=== PATIENT | female | born 1985 | race Caucasian/White ===

== ENCOUNTER 2017-11-04 17:42 | Emergency (ER) | payer OTHER, SELFPAY ==
[2017-11-04 17:58] VITALS: PULSE 89; RESP 18; TEMP 36.6; O2SAT 98; BMI 25.1
--- NOTE | 2017-11-04 18:08 | XR_ITS ---
XR foot RT min 3V HISTORY: Pain and swelling following injury ITS.REASON: DROPPED OBJECT ON FOOT ORDERING PHYSICIAN: Rosaura Etienne MD PATIENT AGE: 31 years COMPARISON: None FINDINGS: There is a faint longitudinal lucency at the base of the proximal phalanx of the fourth toe suggesting a nondisplaced fracture extending into the articular surface at the metatarsophalangeal junction. Please correlate as to patient's area of pain and tenderness. Otherwise negative. IMPRESSION: Possible nondisplaced fracture base of the proximal phalanx of the fourth toe
--- NOTE | 2017-11-04 21:31 | PC.NURSE ---
pt left wobs 2100
== END 2017-11-04 21:00 | disposition left against medical advice (07) ==
PROVIDERS: Emergency Provider Emergency Medicine; Family Provider Family Medicine; PCP Family Medicine
DX: Z53.29 Procedure and treatment not carried out because of patient's decision for other reasons (principal); M25.571 Pain in right ankle and joints of right foot
CPT/HCPCS: 73630; 99282

== ENCOUNTER 2020-11-18 11:46 | Emergency (ER) | payer MEDICAID, SELFPAY ==
[2020-11-18 12:00] VITALS: BP 174/108; PULSE 108; RESP 20; TEMP 36.9; O2SAT 98; BMI 22.8
--- NOTE | 2020-11-18 12:25 | HMH.EDUTC ---
[facility] [place] Impression: Exposure to COVID-19 virus, Strep throat Disposition: Home, Self-Care Condition on Discharge: Good Instructions: DI for COVID-19 (Suspected or Confirmed ), Coronavirus Disease 2019, Preventing the Spread of Coronavirus Discharge Instructions, DI for Strep Throat Additional Instructions: *Monitor Temp, Over the counter Motrin or Tylenol as directed/as needed Tylenol every 4 hours and Motrin every 6 hours (as long as your family doctor has told you that you can take it) for fever or pain. and straight to ER if unable to lower temp less than 101.0 after medication given *Warm salt water gargles may help to soothe the throat *Throat Lozenges *Warm fluids like tea with honey may help to soothe the throat *Sleep elevated *Humidifier/Vaporizer *Flonase 2 sprays in each nostril daily but be aware that it may take 2-3 days before you notice improvement *Bromfed may cause drowsiness. Know how it effects you (your child) before driving, caring for small child, or sending your child to school. Not other antihistamines/allergy medications while taking bromfed Your throat swab was sent for culture. Those results are typically sent to your primary care. Be sure to follow up in 2-3 days with your family doctor/primary care physician if no improvement so they can review those result and treat if necessary. If you don?t have a primary care doctor, I recommend you get one but in the mean time, you will have to return to a walk in clinic Follow up IMMEDIATELY for new or worsening symptoms or no Noticeable improvement over the next 48-72 hours. 911 for difficulty breathing or swallowing You were tested for today for COVID19 your test result should be back in the next 24-48 hours, you may call to the [facility] to see if your test results are back in the next 48 hours [phone] [facility] hours are 9am-9pm You was given a handout with instructions for Self Quarantine and Self isolation for while you wait on test results and what to do if they are positive If you are positive the Health Dept will be contacting you also Your blood pressure was elevated in [facility] make sure to make appointment and follow up with your Family Doctor for further evaluation and treatment Prescriptions: Benzonatate [Tessalon Perle 100mg Cap*] 100 mg PO TID PRN #30 cap PRN Reason: Cough [id number] Azithromycin [Z-Bryan 250mg Tab] 250 mg PO DIRECTED #6 tab [facility] Referrals: Netta Islas [Primary Care Provider] - As needed Forms: Work/School Release Time of Disposition: 12:31 Medical Decision Making - Estevan Inquiry Pt receiving controlled substance: No Estevan was queried for this patient: No Vital Signs: 11/18/20 12:00 Temperature 98.5 F Temperature Source Oral Pulse Rate [Right Brachial] 108 H Respiratory Rate 20 Blood Pressure [Right Arm] 174/108 H Blood Pressure Mean [Right Arm] 130 Blood Pressure Source [Right Arm] Automatic Cuff Blood Pressure Position [Right Arm] Sitting 02 Sat by Pulse Oximetry 98 Oxygen Delivery Method Room Air - Lab Data Lab results reviewed: Yes: I reviewed the patient's lab results. Orders (Tests/Meds): ORDERS Category Date Time Status Covid-19 Nasal PCR Sendout P&C Routine Lab 11/18/20 11:54 [place] [facility] [place] - General Stated complaint: covid exposure Time Seen by Provider: 11/18/20 12:25 Mode of Arrival: Ambulatory Source of Information: Patient Limitations: No Limitations Description of Symptoms (Recalled from Triage Doc. by RN): PATIENT C/O CHILLS, SORE THROAT, COUGH, BODY ACHES, AND FATIGUE X 2 DAYS. EXPOSED TO COVID THROUGH WORK HEENT Symptoms (Recalled from RN notes): Yes Resp Symptoms (Recalled from RN notes): No Skin Symptoms (Recalled from RN notes): No MS Symptoms (Recalled from RN notes): Yes Functional Status (Recalled from RN notes): WNL - History of Present Illness Provid
[2020-11-18 12:28] VITALS: BP 174/108; PULSE 108; RESP 20; TEMP 36.9; O2SAT 98
[2020-11-18 12:46] LABS: UTC Strep Screen (Rapid) Positive (Negative)
[2020-11-18 12:47] LABS: UTC Influenza A Antigen Negative (Negative); UTC Influenza B Antigen Negative (Negative)
[2020-11-19 09:56] LABS: Covid-19 Nasal PCR Sendout P&C NEGATIVE
== END 2020-11-18 12:30 | disposition home or self-care (01) ==
PROVIDERS: Emergency Provider Nurse Practitioner; PCP Family Medicine
DX: Z20.822 Contact with and (suspected) exposure to COVID-19 (principal); J02.0 Streptococcal pharyngitis; F17.210 Nicotine dependence, cigarettes, uncomplicated
CPT/HCPCS: 87804; 87880; 99202; G0463; U0004

== ENCOUNTER 2021-01-22 12:53 | Emergency (ER) | payer MEDICAID, SELFPAY ==
[2021-01-22 13:11] VITALS: BP 167/109; PULSE 75; RESP 14; TEMP 37.1; O2SAT 97; BMI 20.7
[2021-01-22 13:21] LABS: UTC Strep Screen (Rapid) Positive (Negative)
[2021-01-22 13:31] VITALS: BP 140/89; PULSE 69; RESP 16; TEMP 36.6
--- NOTE | 2021-01-22 13:35 | HMH.EDUTC ---
[facility] [place] Disposition Clinical Impression: Strep throat Disposition: Home, Self-Care Condition on Discharge: Good Instructions: DI for Strep Throat, Strep Throat Additional Instructions: *Monitor Temp, Over the counter Motrin or Tylenol as directed/as needed Tylenol every 4 hours and Motrin every 6 hours (as long as your family doctor has told you that you can take it) for fever or pain. and straight to ER if unable to lower temp less than 101.0 after medication given *Warm salt water gargles may help to soothe the throat *Throat Lozenges *Warm fluids like tea with honey may help to soothe the throat *Sleep elevated *Humidifier/Vaporizer If you did not take Penicillin shot or was unable to, start taking antibiotic immediately and make sure that you take it for the FULL length of time although you should start to feel better in 24-48 hours *change toothbrush and toothpaste 24-48 hours after starting to take antibiotics so you do not reinfect yourself Monitor Temp. Tylenol and/or Ibuprofen as needed. ER if fever is no less than 101 despite alternating Tylenol and Ibuprofen * Encourage fluids, water, Gatorade, powerade, pedialyte if /toddler/or child *Cold fluids, popsicles and ice cream may feel good on his throat Follow up IMMEDIATELY for new or worsening symptoms or no Noticeable improvement over the next 48-72 hours. 911 for difficulty breathing or swallowing Prescriptions: Amoxicillin [Amoxicillin 500mg Cap] 500 mg PO BID 10 Days #20 cap Transmission Status: Pending to [id number] Referrals: PCP,No [Primary Care Provider] - As needed Forms: Work/School Release Time of Disposition: 13:39 Medical Decision Making - Estevan Inquiry Pt receiving controlled substance: No Estevan was queried for this patient: No Vital Signs: 01/22/21 13:11 01/22/21 13:31 Temperature 98.8 F 98 F Temperature Source Oral Pulse Rate 69 Pulse Rate [Right] 75 Respiratory Rate 14 16 Blood Pressure 140/89 Blood Pressure [Right Arm] 167/109 H Blood Pressure Mean [Right Arm] 128 Blood Pressure Source [Right Arm] Automatic Cuff Blood Pressure Position [Right Arm] Sitting 02 Sat by Pulse Oximetry 97 Oxygen Delivery Method Room Air - Lab Data Lab results reviewed: Yes: I reviewed the patient's lab results. Lab Results 01/22/21 13:19: Strep Scn Rapid Clinic Positive A [facility] [place] HPI - General Stated complaint: sore throat Time Seen by Provider: 01/22/21 13:35 Mode of Arrival: Ambulatory Source of Information: Patient Limitations: No Limitations Description of Symptoms (Recalled from Triage Doc. by RN): sore throat. pt was exposed to strep yesterday. HEENT Symptoms (Recalled from RN notes): Yes (sore throat) Resp Symptoms (Recalled from RN notes): No Skin Symptoms (Recalled from RN notes): No MS Symptoms (Recalled from RN notes): No Functional Status (Recalled from RN notes): na - History of Present Illness Provider Complaint: Patient state that she was around someone yesterday that was positive for strep and her and her daughter has been having symptoms States that her throat was hurting and pain when she would swallow so she came in to get checked - Related Data Home Medications Medication Instructions Recorded Confirmed lisinopriL [Lisinopril 10mg Tab] 10 mg PO DAILY 03/20/19 08/15/19 Previous Rx's Medication Instructions Recorded Cyclobenzaprine HCl [Flexeril 10mg 10 mg PO Q8HP PRN #15 tab 08/15/19 tablet] Etodolac [Etodolac 200mg Cap*] 200 mg PO Q6H PRN #20 cap 08/15/19 Acyclovir [Acyclovir 800mg tab] 800 mg PO 5XDAY 7 Days #35 tab 12/11/19 Azithromycin [Z-Bryan 250mg Tab*] 250 mg PO UD DOSE PK #6 tab 12/11/19 predniSONE [Deltasone 10mg tablet] 10 mg PO DAILY 9 Days #21 tab 12/11/19 predniSONE [Deltasone 10mg tablet] 10 mg PO DAILY 9 Days #39 tab 12/11/19 Hydrocod/Acet 5/325 mg [[place] 1 tab PO Q6HP PRN #10 tab 01/25/20 5/325mg tablet] predniSONE [Prednisone 20mg 20 m
== END 2021-01-22 13:47 | disposition home or self-care (01) ==
PROVIDERS: Emergency Provider Nurse Practitioner
DX: J02.0 Streptococcal pharyngitis (principal); I10 Essential (primary) hypertension
CPT/HCPCS: 87880; 99202; G0463

== ENCOUNTER 2021-04-22 21:14 | Emergency (ER) | payer MEDICAID, SELFPAY ==
[2021-04-22 21:16] VITALS: BP 170/113; PULSE 89; RESP 18; TEMP 36.9; O2SAT 98; BMI 19.8
--- NOTE | 2021-04-22 21:40 | XR_ITS ---
PROCEDURE INFORMATION: Exam: XR Right Elbow Exam date and time: 04/22/2021 9:40 PM Age: 35 years old Clinical indication: Injury or trauma; Fall; Blunt trauma (contusions or hematomas); Patient HX: Patient fell injuring right elbow. TECHNIQUE: Imaging protocol: XR Right elbow. Views: 3 or more views. COMPARISON: No relevant prior studies available. FINDINGS: Bones/joints: Normal. Soft tissues: Normal. IMPRESSION: No acute findings.
--- NOTE | 2021-04-22 22:36 | HMH.EDUPEXT ---
ED Disposition Clinical Impression: Sprain of elbow, right Qualifiers: Encounter type: initial encounter Qualified Code(s): S53.401A - Unspecified sprain of right elbow, initial encounter Disposition: Home, Self-Care Condition on Discharge: Good Instructions: DI for Elbow Pain Additional Instructions: ice and see pcp for follow up Referrals: Netta Islas [Primary Care Provider] - - Critical Care Critical Care Time: No Attestation: On 04/22/21, the high probability of a clinically significant, sudden or life threatening deterioration of the following system(s) required my full and direct attention, intervention and personal management. The time I documented below is in addition to time spent performing reported procedures but includes the following listed in this critical care notation. Medical Decision Making - Medical Records Medical records reviewed: Yes: I reviewed the patient's medical records. - Estevan Inquiry Pt receiving controlled substance: No Vital Signs: 04/22/21 21:16 Temperature 98.5 F Temperature Source Oral Pulse Rate [Right Brachial] 89 Respiratory Rate 18 Blood Pressure [Right Arm] 170/113 H Blood Pressure Mean [Right Arm] 132 Blood Pressure Source [Right Arm] Automatic Cuff Blood Pressure Position [Right Arm] Sitting 02 Sat by Pulse Oximetry 98 Oxygen Delivery Method Room Air - Lab Data Lab results reviewed: Yes: I reviewed the patient's lab results. - Radiology Data #1 Image(s): Elbow Image Reviewed: Yes I reviewed the patient's radiology image Preliminary Findings: No Fracture Seen Medical Decision Narrative: ice and see pcp for follow up Upper Extremity HPI - General Chief Complaint: Extremity Injury, Upper Stated Complaint: AO 04/20 fell R Elbow Time Seen by Provider: 04/22/21 22:00 Mode of Arrival: Family Vehicle Source of Information: Patient, Medical Record Limitations: No Limitations Description of Symptoms (Recalled from ER Triage Doc. by RN): pt states she tripped over some clothing on her stairs and got her right arm caught in the railing twisting it and causing inflammation and pain. pt denies any additional injury. - History of Present Illness HPI narrative: acute rt elbow injury tonight with no other c/o MD complaint: injury to: right, elbow Onset (ago): hour(s) Other Extremity Injury: Right: elbow Other injuries: none Handedness: right Place: home Severity: moderate Context: fall Associated symptoms: denies other symptoms - Related Data Home Medications Medication Instructions Recorded Confirmed lisinopriL [Lisinopril 10mg Tab] 10 mg PO DAILY 03/20/19 08/15/19 Previous Rx's Medication Instructions Recorded Cyclobenzaprine HCl [Flexeril 10mg 10 mg PO Q8HP PRN #15 tab 08/15/19 tablet] Etodolac [Etodolac 200mg Cap*] 200 mg PO Q6H PRN #20 cap 08/15/19 Acyclovir [Acyclovir 800mg tab] 800 mg PO 5XDAY 7 Days #35 tab 12/11/19 Azithromycin [Z-Bryan 250mg Tab*] 250 mg PO UD DOSE PK #6 tab 12/11/19 predniSONE [Deltasone 10mg tablet] 10 mg PO DAILY 9 Days #21 tab 12/11/19 predniSONE [Deltasone 10mg tablet] 10 mg PO DAILY 9 Days #39 tab 12/11/19 Hydrocod/Acet 5/325 mg [[place] 1 tab PO Q6HP PRN #10 tab 01/25/20 5/325mg tablet] predniSONE [Prednisone 20mg 20 mg PO BID #10 tab 01/25/20 Tab] Azithromycin [Z-Bryan 250mg Tab] 250 mg PO DIRECTED #6 tab 11/18/20 Benzonatate [Tessalon Perle 100mg 100 mg PO TID PRN #30 cap 11/18/20 Cap*] Amoxicillin [Amoxicillin 500mg 500 mg PO BID 10 Days #20 cap 01/22/21 Cap] Allergies Allergy/AdvReac Type Severity Reaction Status Date / Time calamine [CALAMINE] Allergy Intermediate I-HIVES Verified 01/22/21 13:16 [facility] Allergy Unknown Uncoded 10/19/17 15:21 [facility] History - Hepatitis A Screen Drug use history?: No High risk sexual behaviors?: No History of sexually transmitted infection?: No Currently employed?: No Childcare worker?: No Do you have ind
[2021-04-22 22:51] VITALS: BP 172/99; PULSE 79; RESP 16; TEMP 36.6; O2SAT 100
[2021-04-22 22:52] VITALS: BP 172/107; PULSE 86; O2SAT 99
== END 2021-04-22 23:38 | disposition home or self-care (01) ==
PROVIDERS: Emergency Provider Emergency Medicine; PCP Family Medicine
DX: S53.401A Unspecified sprain of right elbow, initial encounter (principal); W10.9XXA Fall (on) (from) unspecified stairs and steps, initial encounter; Y92.019 Unspecified place in single-family (private) house as the place of occurrence of the external cause
CPT/HCPCS: 73080; 99282

== ENCOUNTER 2021-05-26 10:42 | Emergency (ER) | payer MEDICAID, SELFPAY ==
[2021-05-26 10:43] VITALS: BP 173/100; PULSE 92; RESP 18; O2SAT 95; BMI 18.6
--- NOTE | 2021-05-26 11:28 | HMH.EDUTC ---
[facility] [place] Disposition Clinical Impression: Exposure to COVID-19 virus Pharyngitis Qualifiers: Pharyngitis/tonsillitis etiology: unspecified etiology Qualified Code(s): J02.9 - Acute pharyngitis, unspecified Disposition: Home, Self-Care Condition on Discharge: Good Instructions: DI for Pharyngitis/Tonsillopharyngitis -- Adult, Preventing the Spread of Coronavirus Discharge Instructions Additional Instructions: Drink plenty of fluids. Take tylenol or ibuprofen for pain or fever. Take the medications as directed. Follow up with your regular doctor. GO TO THE ER FOR ANY WORSENING SYMPTOMS Bad tableReferrals: Provider,Referral, MD [Primary Care Provider] - Forms: Work/School Release Time of Disposition: 11:46 Medical Decision Making - Medical Records Medical records reviewed: No: I reviewed the patient's medical records. - Estevan Inquiry Pt receiving controlled substance: No Vital Signs: 05/26/21 10:43 05/26/21 11:59 Temperature 98.4 F Temperature Source Oral Pulse Rate 92 H Pulse Rate [Left Radial] 92 H Respiratory Rate 18 18 Blood Pressure 142/90 H Blood Pressure [Right Arm] 173/100 H Blood Pressure Mean [Right Arm] 124 Blood Pressure Source Automatic Cuff Blood Pressure Source [Right Arm] Automatic Cuff Blood Pressure Position Sitting Blood Pressure Position [Right Arm] Sitting 02 Sat by Pulse Oximetry 95 Oxygen Delivery Method Room Air Room Air - Lab Data Lab results reviewed: Yes: I reviewed the patient's lab results. Lab Results 05/26/21 17:19: Strep Scn Rapid Clinic Negative Orders (Tests/Meds): ORDERS Category Date Time Status Strep Screen Confirmation Stat Micro 05/26/21 17:19 Received [facility] [place] HPI - General Stated complaint: dizziness, sore throat, cough Time Seen by Provider: 05/26/21 11:28 Mode of Arrival: Ambulatory Source of Information: Patient Limitations: No Limitations Description of Symptoms (Recalled from Triage Doc. by RN): c/o sore throat, tired, nausea, high blood pressure and dizziness starting 2 days ago. States yesterday that she passed out for a few seconds and hit her upper left forehead. Denies any other episodes since of passing out. States she usually takes propanolol for bp but her insurance got switched around and she has been unable to get this medicine as of this time. HEENT Symptoms (Recalled from RN notes): Yes Resp Symptoms (Recalled from RN notes): No Skin Symptoms (Recalled from RN notes): No MS Symptoms (Recalled from RN notes): No Functional Status (Recalled from RN notes): wnl - History of Present Illness Provider Complaint: She c/o 2 days of sore throat, sinus drainage, fatigue and feeling bad. She denies any fever/chills/body aches. She has had some nausea, but no vomiting or diarrhea. - Related Data Home Medications Medication Instructions Recorded Confirmed lisinopriL [Lisinopril 10mg Tab] 10 mg PO DAILY 03/20/19 08/15/19 Previous Rx's Medication Instructions Recorded Cyclobenzaprine HCl [Flexeril 10mg 10 mg PO Q8HP PRN #15 tab 08/15/19 tablet] Etodolac [Etodolac 200mg Cap*] 200 mg PO Q6H PRN #20 cap 08/15/19 Acyclovir [Acyclovir 800mg tab] 800 mg PO 5XDAY 7 Days #35 tab 12/11/19 Azithromycin [Z-Bryan 250mg Tab*] 250 mg PO UD DOSE PK #6 tab 12/11/19 predniSONE [Deltasone 10mg tablet] 10 mg PO DAILY 9 Days #21 tab 12/11/19 predniSONE [Deltasone 10mg tablet] 10 mg PO DAILY 9 Days #39 tab 12/11/19 Hydrocod/Acet 5/325 mg [[place] 1 tab PO Q6HP PRN #10 tab 01/25/20 5/325mg tablet] predniSONE [Prednisone 20mg 20 mg PO BID #10 tab 01/25/20 Tab] Azithromycin [Z-Bryan 250mg Tab] 250 mg PO DIRECTED #6 tab 11/18/20 Benzonatate [Tessalon Perle 100mg 100 mg PO TID PRN #30 cap 11/18/20 Cap*] Amoxicillin [Amoxicillin 500mg 500 mg PO BID 10 Days #20 cap 01/22/21 Cap] Azithromycin [Z-Bryan 250mg Tab*] 250 mg PO UD DOSE PK #6 tab 05/26/21 Benzonatate [Tessalon Perle 100mg 100 mg PO TIDP OR
[2021-05-26 11:59] VITALS: BP 142/90; PULSE 92; RESP 18; TEMP 36.9; O2SAT 95
[2021-05-26 17:24] LABS: UTC Strep Screen (Rapid) Negative (Negative)
== END 2021-05-26 12:00 | disposition home or self-care (01) ==
PROVIDERS: Emergency Provider Nurse Practitioner Family
DX: J02.9 Acute pharyngitis, unspecified (principal); Z20.822 Contact with and (suspected) exposure to COVID-19
CPT/HCPCS: 87880; 99202; G0463; U0003

== ENCOUNTER 2021-06-20 02:02 | Observation (INO) | payer MEDICAID, SELFPAY ==
[2021-06-20] VITALS (8 sets, daily range): BP systolic 115–134; BP diastolic 59–99; PULSE 47–69; RESP 15–22; TEMP 36.5–36.7; O2SAT 95–100; BMI 19.2; BMI 22.9; BMI 17.3
--- NOTE | 2021-06-20 | CA_ITS ---
APPROVED REPORT Exam: Pharmacologic Technologist: Keerthi Benavides, Ht: 5 ft 9 in Wt: 120 lbs BSA: 1.66 m2 HR: 68 bpm BP: 109/60 mmHg Medical History Medical History: Smoking Cardiac Risk Factors: FHX of CAD, Smoking Stress Test Details Test: LEXISCAN HR Resting HR: 65 bpm Max Heart Rate (APMHR): 183.652333 bpm Max HR Achieved: 109 bpm Target HR (85% APMHR): 155.580147 bpm % of APMHR: 59.56 Recovery HR: 86 bpm BP Resting BP: 109/60 mmHg Max BP: 110/59 mmHg Recovery BP: 103.0/64.[address] Change: Horizontal ST depression Clinical Exercise duration: 04:00 min Highest Stage Achieved: Exercise capacity: 1.0 METs Stress ECG Conclusion LEXISCAN PORTION COMPLETED. PT C/O SHORTNESS OF BREATH AT PEAK INFUSION RESOLVED IN RECOVERY. NO CP. NO ECTOPY. LESS THAN 1.[address] DEPRESSION. IMAGES TO FOLLOW. Test Summary RECOVERY 03:00 . . 90 . 108/ 65 . . REST 08:12 . . 65 . 109/ 60 . . Stage 1 . . . . . . . Myoview Injected Stage 1 01:00 . . 103 . . . . Stage 2 01:00 . . 101 . 106/ 59 . . Stage 3 01:00 . . 87 . 95/ 59 . . Stage 4 01:00 . . 86 . 104/ 58 . Stop exercise at 04:00 RECOVERY 01:00 . . 86 . 102/ 57 . . RECOVERY 02:00 . . 97 . 110/ 59 . . RECOVERY 03:00 . . 90 . 108/ 65 . . RECOVERY 03:42 . . 79 . 103/ 64 . . Electronically signed by : Torres Mcgregor MD 06/22/2021 08:48:57
--- NOTE | 2021-06-20 01:59 | ECG_ITS ---
APPROVED REPORT Exam: Resting ECG HR:87 bpm ECG Measurements Heart Rate 87 AXES MI 112 P 21 QRSd 80 QRS 38 QT 400 T 37 QTc 481 Conclusion Normal sinus rhythm Prolonged QT Abnormal ECG Electronically signed by : Oneil Celis MD 06/20/2021 12:02:09
--- NOTE | 2021-06-20 02:03 | CT_ITS ---
PROCEDURE INFORMATION: Exam: CTA Chest With Contrast Exam date and time: 06/20/2021 2:03 AM Age: 35 years old Clinical indication: Shortness of breath; Chest pressure; Patient HX: Chest pain, SOA, cough; Additional info: Ben SOTasneem TECHNIQUE: Imaging protocol: Computed tomographic angiography of the chest with contrast. 3D rendering (Not supervised by radiologist): MIP and/or 3D reconstructed images were created by the technologist. Radiation optimization: All CT scans at this facility use at least one of these dose optimization techniques: automated exposure control; mA and/or kV adjustment per patient size (includes targeted exams where dose is matched to clinical indication); or iterative reconstruction. Contrast material: ISOVUE 370; Contrast volume: 70 ml; Contrast route: INTRAVENOUS (IV); COMPARISON: CR XR CHEST AP 06/20/2021 2:20 AM FINDINGS: Pulmonary arteries: Enhancement of the pulmonary arterial circulation is excellent. No pulmonary emboli. Aorta: No thoracic aortic aneurysm. No evidence of dissection, within limits of motion artifact. Other arteries: There is a splenic artery aneurysm measuring 10 x 5 mm incidentally noted (series 2, image 297). Lungs: Mild dependent atelectasis. No airspace consolidation or specific findings of pneumonia. Biapical scarring. There are few scattered calcified granulomas. Pleural spaces: Trace bilateral pleural effusions. No pneumothorax. Heart: Unremarkable. No cardiomegaly. No pericardial effusion. Lymph nodes: There are several calcified hilar and mediastinal lymph nodes compatible granulomatous disease. Bones/joints: Unremarkable. No acute fracture. Soft tissues: Unremarkable. IMPRESSION: 1. No evidence pulmonary embolus. 2. Trace pleural effusions bilaterally. Biapical scarring. Old granulomatous disease. 3. Incidental splenic artery aneurysm measuring 10 x 5 mm. Advise a follow-up CT angiogram of the abdomen/pelvis in 1 year.
--- NOTE | 2021-06-20 02:03 | XR_ITS ---
PROCEDURE INFORMATION: Exam: XR Chest Exam date and time: 06/20/2021 2:03 AM Age: 35 years old Clinical indication: Pain; Chest pressure; Patient HX: SOA, cough; Additional info: Cp TECHNIQUE: Imaging protocol: XR of the chest. Views: 1 view. COMPARISON: CR XR CHEST 2V 01/25/2020 10:20 AM FINDINGS: Lungs: Scarring at the lung apices. No airspace consolidation. No pulmonary edema. A few calcified granulomas are seen. Pleural spaces: No definite pleural effusion. No pneumothorax. Heart/Mediastinum: Normal heart size. Bones/joints: Unremarkable. IMPRESSION: No acute findings.
[2021-06-20 02:10] LABS: Basophils # 0.1 K/mm3 (0-0.2); Basophils % 0.6 % (0.1-2.0); Eosinophils % 0.5 % (0.1-12.0); Hematocrit 38.8 % (37.0-47.0); Hemoglobin 13.4 g/dL (12.2-16.2); Lymphocytes # 3.2 K/mm3 (0.7-4.5); Lymphocytes % 38.2 % (10-50); Mean Corpuscular HGB Conc 34.6 g/dL (31.8-35.4); Mean Corpuscular Hemoglobin 30.9 pg (27.0-31.2); Mean Corpuscular Volume 89.1 fl (81-99); Mean Platelet Volume 7.7 fl (7.4-10.4); Monocytes # 0.4 K/mm3 (0.1-1.0); Monocytes % 4.5 % (1.7-9.3); Neutrophils # 4.7 K/mm3 (1.8-7.8); Neutrophils % 56.1 % (37.0-80.0); Platelet Count 309 K/mm3 (142-424); Red Blood Count 4.36 M/mm3 (4.20-5.40); Red Cell Distribution Width 13.3 % (11.5-17.5); White Blood Count 8.3 K/mm3 (4.8-10.8)
[2021-06-20 02:18] LABS: Anion Gap 12.8 mEq/L (5-15); Blood Urea Nitrogen 14 mg/dl (7-17); Calcium 9.7 mg/dl (8.4-10.2); Carbon Dioxide 26 mmol/L (22.0-30.0); Chloride 105 mmol/L (98-107); Creatinine Clearance Estimated 110 mL/min (50-200); Estimated Glomerular Filt Rate 81 ml/min (>60); GFR (African American) 98 ML/MIN (>60); Glucose 97 mg/dl (74-100); Potassium 3.8 mmoL/L (3.5-5.1); Sodium 140 mmol/L (136-145)
[2021-06-20 02:23] LABS: C-Reactive Protein 0.4 mg/L (0-4)
--- NOTE | 2021-06-20 02:28 | HMH.EDCP ---
ED Disposition Clinical Impression: Tobacco use Chest pain Qualifiers: Chest pain type: precordial pain Qualified Code(s): R07.2 - Precordial pain HTN (hypertension) Qualifiers: Hypertension type: primary hypertension Qualified Code(s): I10 - Essential (primary) hypertension Disposition: Admitted as Observation Condition on Discharge: Good Referrals: Netta Islas [Primary Care Provider] - - Critical Care Critical Care Time: No Attestation: On 06/20/21, the high probability of a clinically significant, sudden or life threatening deterioration of the following system(s) required my full and direct attention, intervention and personal management. The time I documented below is in addition to time spent performing reported procedures but includes the following listed in this critical care notation. Medical Decision Making - Medical Records Medical records reviewed: Yes: I reviewed the patient's medical records. - [place] Inquiry Pt receiving controlled substance: No Vital Signs: 06/20/21 01:58 06/20/21 02:47 06/20/21 03:00 Temperature 98.0 F Temperature Source Oral Pulse Rate 63 64 Pulse Rate [Right] 67 Respiratory Rate 21 22 18 Blood Pressure 134/90 130/89 Blood Pressure [Right Arm] 132/99 H Blood Pressure Mean [Right Arm] 110 Blood Pressure Source [Right Arm] Automatic Cuff 02 Sat by Pulse Oximetry 95 98 99 Oxygen Delivery Method Room Air Room Air Room Air 06/20/21 03:30 Temperature Temperature Source Pulse Rate 69 Pulse Rate [Right] Respiratory Rate 19 Blood Pressure 129/83 Blood Pressure [Right Arm] Blood Pressure Mean [Right Arm] Blood Pressure Source [Right Arm] 02 Sat by Pulse Oximetry 98 Oxygen Delivery Method Room Air - Lab Data Lab results reviewed: Yes: I reviewed the patient's lab results. Lab Results 06/20/21 02:00: WBC 8.3, RBC 4.36, Hgb 13.4, Hct 38.8, MCV 89.1, MCH 30.9, MCHC 34.6, RDW 13.3, Plt Count 309, MPV 7.7, Neut % (Auto) 56.1, Lymph % (Auto) 38.2, Bell % (Auto) 4.5, Eos % (Auto) 0.5, Baso % (Auto) 0.6, Neut # (Auto) 4.7, Lymph # (Auto) 3.2, Bell # (Auto) 0.4, Eos # (Auto) 0.0, Baso # (Auto) 0.1 06/20/21 02:00: Sodium 140, Potassium 3.8, Chloride 105, Carbon Dioxide 26, Anion Gap 12.8, BUN 14, Creatinine 0.80, Estimated Creat Clear 110, Estimated GFR 81, Est GFR ( Amer) 98, Glucose 97, Calcium 9.7, Magnesium 2.0, Troponin I < 0.01, C-Reactive Protein 0.4 06/20/21 02:00: ESR 21 H 06/20/21 02:00: Procalcitonin 0.075 06/20/21 02:00: TSH 0.76, Thyroxine (T4) 6.6 06/20/21 02:00: Total Bilirubin 0.7, Direct Bilirubin 0.5 H, Conjugated Bilirubin 0.0, Indirect Bilirubin 0.2, Unconjugated Bilirubin 0.1, AST 24, ALT 18, Alkaline Phosphatase 60, Total Protein 7.5, Albumin 4.3 06/20/21 02:30: SARS-CoV-2 (PCR) Not detected, Influenza A Untype (PCR) Not detected, Influenza Type B (PCR) Not detected Result diagrams: 06/20/21 02:00 06/20/21 02:00 Orders (Tests/Meds): ED MEDICATIONS Generic Name Dose Route Start Last Admin Trade Name Freq PRN Reason Stop Dose Admin Famotidine 20 mg 06/20/21 03:55 Famotidine 20mg/2ml Vial IV 06/20/21 03:56 ONCE ONE Sodium Chloride 1,000 mls @ 999 mls/hr 06/20/21 02:15 06/20/21 02:11 Sod Chlor 0.9% 1000ml Bag IV 06/20/21 03:15 999 mls/hr .Q1H1M TARAS Administration Metoclopramide HCl 10 mg 06/20/21 03:55 Metoclopramide Hcl 10mg/2ml Vial IVP 06/20/21 03:56 ONCE ONE Sodium Chloride 8 ml 06/20/21 03:55 Sodium Chloride 0.9% 10ml Vial IV 07/20/21 03:54 NEEDED PRN dilute pepcid Discontinued Medications Generic Name Dose Route Start Last Admin Trade Name Freq PRN Reason Stop Dose Admin Acetaminophen 650 mg 06/20/21 03:49 06/20/21 03:49 Acetaminophen 325mg Tab PO 06/20/21 03:50 650 mg ONCE ONE Administration Iopamidol 70 ml 06/20/21 02:49 06/20/21 02:51 Iopamidol-370 (76%);100ml Bottle IV 06/20/21 02:50 70 ml ONCE ONE Administration N
[2021-06-20 02:36] LABS: Procalcitonin 0.075 ng/mL (0.0-2.0)
[2021-06-20 02:37] LABS: T4 (Thyroxine) 6.6 ug/dl (5.53-11.0)
[2021-06-20 02:38] LABS: Coronavirus 19, PCR Not Detected (NotDetected); Influenza A, PCR Not Detected (NotDetected); Influenza B, PCR Not Detected (NotDetected)
[2021-06-20 02:42] LABS: Troponin I < 0.01 ng/ml (0.00-0.034)
[2021-06-20 02:44] LABS: Erythrocyte Sedimentation Rate 21 mm/hr (0-20)
[2021-06-20 02:46] LABS: Alanine Aminotransferase 18 U/L (12-78); Albumin Level 4.3 g/dl (3.5-5.0); Alkaline Phosphatase 60 U/L (38-126); Aspartate Amino Transferase 24 U/L (14-36); Bilirubin,Direct 0.5 mg/dl (0.0-0.4); Bilirubin,Indirect 0.2 mg/dL (0.0-0.9); Bilirubin,Total 0.7 mg/dl (0.2-1.3); Bilirubin,Unconjugated 0.1 mg/dL (0.0-1.1); Total Protein,Serum 7.5 g/dl (6.3-8.2)
[2021-06-20 02:51] LABS: Thyroid Stimulating Hormone 0.76 uIU/mL (0.465-4.68)
[2021-06-20 03:51] LABS: Microscopic, Urine URINE MICROSCOPIC (MICROSCOPIC)
[2021-06-20 03:56] LABS: Appearance,Urine CLEAR (Clear); Bilirubin,Urine Negative (Negative); Blood, Urine Negative (Negative); Color,Urine YELLOW (Yellow); Glucose,Urine (UA) Negative (Negative); Ketones,Urine Negative (Negative); Leukocyte Esterase,Urine Negative (Negative); Nitrate,Urine Negative (Negative); Protein,Urine Negative (Negative); Urobilinogen,Urine 0.2 EU/dl (0.2)
--- NOTE | 2021-06-20 03:56 | PC.NURSE ---
notified warehouse order puller regarding admission
[2021-06-20 04:07] LABS: Bacteria,Urine 1+ /lpf; Mucus,Urine 1+ /lpf
--- NOTE | 2021-06-20 05:20 | PC.NURSE ---
PT ARRIVED TO FLOOR VIA W/C FROM ED W/STAFF AT 0510
[2021-06-20 05:29] LABS: Basophils % 0.5 % (0.1-2.0); Chloride 110 mmol/L (98-107); Eosinophils % 0.7 % (0.1-12.0); Hematocrit 34.1 % (37.0-47.0); Lymphocytes # 2.5 K/mm3 (0.7-4.5); Mean Corpuscular HGB Conc 33.3 g/dL (31.8-35.4); Mean Corpuscular Hemoglobin 30.6 pg (27.0-31.2); Mean Corpuscular Volume 91.7 fl (81-99); Mean Platelet Volume 7.5 fl (7.4-10.4); Monocytes # 0.2 K/mm3 (0.1-1.0); Monocytes % 3.6 % (1.7-9.3); Neutrophils # 3.5 K/mm3 (1.8-7.8); Neutrophils % 55.1 % (37.0-80.0); Platelet Count 258 K/mm3 (142-424); Red Blood Count 3.71 M/mm3 (4.20-5.40); Red Cell Distribution Width 13.3 % (11.5-17.5); Sodium 139 mmol/L (136-145); White Blood Count 6.3 K/mm3 (4.8-10.8)
[2021-06-20 05:32] LABS: Blood Urea Nitrogen 13 mg/dl (7-17); Carbon Dioxide 23 mmol/L (22.0-30.0); Cholesterol 141 mg/dl (140-200); Creatinine Clearance Estimated 126 mL/min (50-200); Estimated Glomerular Filt Rate 94 ml/min (>60); GFR (African American) 114 ML/MIN (>60); Triglycerides 77 mg/dl (30-150); VLDL Cholesterol 15 mg/dL (0-40)
[2021-06-20 05:33] LABS: Calcium 8.6 mg/dl (8.4-10.2); Chol/HDL Ratio 3.9 (1-3.5); Glucose 95 mg/dl (74-100); HDL Cholesterol 36 mg/dl (40-60); Magnesium 1.9 mg/dl (1.6-2.3)
[2021-06-20 05:44] LABS: Direct LDL Cholesterol 85.63 mg/dL (100-129)
[2021-06-20 05:46] LABS: Hemoglobin 11.4 g/dL (12.2-16.2)
[2021-06-20 06:05] LABS: Troponin I < 0.01 ng/ml (0.00-0.034)
--- NOTE | 2021-06-20 07:08 | P.CONPHA_ITS ---
[facility] VTE Monitoring - Patient Demographics Admission date: 06/20/21 Report Date: 06/20/21 Time: 07:08 Allergies/Adverse Reactions: Patient Allergies calamine [CALAMINE] Allergy (Intermediate, Verified 01/22/21 13:16) I-HIVES BEE STINGS Allergy (Unknown, Uncoded 10/19/17 15:21) Height: 1.78 m Weight: 54.93 kg Patient Problems: Current Active Problems Chest pain (Acute) HTN (hypertension) (Acute) Tobacco use (Acute) - VTE Risk Labs: VTE Related Lab Results Hgb 11.4 g/dL (12.2-16.2) L D 06/20/21 05:17 Hct 34.1 % (37.0-47.0) L 06/20/21 05:17 Plt Count 258 K/mm3 (142-424) 06/20/21 05:17 BUN 13 mg/dl (7-17) 06/20/21 05:17 Creatinine 0.70 mg/dl (0.52-1.04) 06/20/21 05:17 Estimated Creat Clear 126 mL/min (50-200) 06/20/21 05:17 VTE Score: 0 VTE Risk Level: Low Risk - Prophylaxis VTE Prophylaxis Ordered?: Yes Types of VTE Prophylaxis: TEDS Knee High Location of Applied Device: Bilateral Lower Extremeties
--- NOTE | 2021-06-20 08:00 | NM_ITS ---
APPROVED REPORT Exam: Nuclear Stress Test Indication: chest pain Patient Location: Inpatient Stress Tech: Keerthi Benavides KLAUDIA Tech:MARIA ANTONIA Guerrero RT(R)(N) Ht: 5 ft 4 in Wt: 120 lbs Bra Size: 32a HR: 65 bpm BP: 109/60 mmHg BSA: 1.57 m2 BMI: 20.5 Procedure: Patient received a 0.4 mg of intravenous Lexiscan, resting heart rate 65 bpm, resting blood pressure 109/60 mmHg, with Lexiscan maximum heart rate achived was 109 bpm which is 85 % of the maximum predicted heart rate and blood pressure was 110/59 mmHg. With Lexiscan, patient denied any complaint of chest pain. Cardiac Stress and Resting SPECT Images: Cardiac Stress and Resting SPECT images were obtained using technetium 99m Myoview 32.9 mCi stress and 10.57 mCi at rest. EF lower normal at 52 %. No wall motion abnormalities Smal reversible defect inferior wall near apex suggesting small area of ischemia Conclusion: EF lower normal at 52 %. No wall motion abnormalities Smal reversible defect inferior wall near apex suggesting small area of ischemia Electronically signed by : Zi Gaines MD 06/20/2021 14:19:48
--- NOTE | 2021-06-20 08:00 | US_ITS ---
PROCEDURE: US GALLBLADDER CLINICAL INDICATION: abd pain/atypical chest pain COMPARISON: No exams were available for comparison FINDINGS: Pancreas: Unremarkable/Not well seen Liver: Unremarkable. There is appropriate direction of blood flow within a non dilated portal vein. Right kidney: Unremarkable appearing. No hydronephrosis. Gallbladder: No stones are evident. There is no gallbladder wall thickening. Common duct is normal in diameter. There is some echogenic debris within the gallbladder suggesting mild amount of sludge. IMPRESSION: No gallstones, gallbladder wall thickening or pericholecystic fluid or biliary dilatation. Minimal amount of gallbladder sludge Dictated by: Zi Gaines MD 06/20/2021 10:47 Zi Gaines MD in OV 06/20/2021 10:47
--- NOTE | 2021-06-20 08:00 | CA_ITS ---
APPROVED REPORT EXAM: Comprehensive 2D, Doppler, and color-flow Echocardiogram Party Plan Sales Unit Sales Leader: Sally Roper CRT Ht: 5 ft 10 in Wt: 160lbs BSA: 1.90 BP: 129/83 mmHg Indications: Chest Pain, Hypertension/HDD, smoker 2D Dimensions LVOT 1.98 cm (M/F) 1.5-2.5 LA Volume 38.70 mL LA Volume Index 20.40 mL/m2 (M/F) 16-34 M-Mode Dimensions RVDd 2.66 cm (0.9-2.6) LA Diam 3.27 cm (1.9-4.0) LVDd 4.05 cm (3.5-5.7) Ao Diam 4.23 cm (2.0-3.7) LVDs 2.05 cm (3.5-5.7) IVSd 1.31 cm (0.6-1.1) PWd 1.04 cm (0.6-1.1) EF (Teich) 81.10% FS 49.40% EDV (Teich) 72.10 mL TAPSE 1.79 (<1.7) ESV (Teich) 13.60 mL LV Diastology E Decel Time 150.00 (160-240 msec) E/A Ratio 2.16 MED E' 8.60 (< 7 cm/sec) MED A' 8.20 cm/s E'/MED E' Ratio 9.20 (>14) LAT E' 13.10 (<10 cm/sec) LAT A' 6.20 cm/s E/LAT E' Ratio 6.04 (>14) Aortic Valve AO Peak GR. 5.10 mmHg Mitral Valve MV E Max Devon. 79.00 (40-130 cm/s) MV A Velocity 37.00 (40-130 cm/s) E/A Ratio 2.16 MV Decel. Time 150.00 (160-240 ms) MV PHT 44.00 ms Pulmonary Valve PV Peak Velocity 117.00 (50-150 cm/s) Tricuspid Valve TR P. Velocity 201.00 cm/s RAP Estimate 10.00 mmHg RVSP 26.20 mmHg Left Ventricle Left atrium is normal size, left ventricle is normal size, visually estimated ejection fraction 55% with no regional wall motion abnormality, diastolic parameters are within normal range. Right Ventricle Right atrium and right ventricle are normal size and contractility. Aortic Valve Aortic valve is grossly normal, there is no aortic stenosis or aortic insufficiency. Mitral Valve Mitral valve is grossly normal, there is trace mitral regurgitation. Tricuspid Valve Tricuspid valve grossly normal, there is trace tricuspid regurgitation, tricuspid regurgitation jet velocity is inadequate for calculation of the right ventricular systolic pressure. Pulmonic Valve Pulmonic valve is poorly visualized. Great Vessels Aortic root is normal size. Inferior vena cava is normal size with normal inspiratory collapse. Pericardium No significant pericardial effusion noted. Conclusion 1. Normal left ventricular size, preserved left ventricular systolic function, visually estimated ejection fraction 55% with no regional wall motion abnormality, diastolic parameters are within normal range. 2. Trace mitral and tricuspid regurgitation. 3. No significant pericardial effusion noted. Electronically signed by : Torres Mcgregor MD 06/20/2021 10:30:32
--- NOTE | 2021-06-20 08:01 | HMH.CNCARD ---
History of Present Illness Consult date: 06/20/21 Requesting physician: Walter Monge Consult reason: chest pain Chief complaint: Chest pain History of present illness: 35-year-old female admitted to [facility] with midsternal chest pain. Patient states her chest pain radiates down bilateral arms to the middle of the chest. Patient describes pain as stabbing pressure feeling in the chest. Patient states intermittent dyspnea associated with chest pain. Patient states she has been upset and has had anxiety for the past few days due to current home situation. Patient states chest pain is likely due to to her anxiety and stress. Patient denies chest pain, tightness or pressure at this time. Patient did say nitroglycerin relieved her chest pain earlier. Patient denies shortness of breath. No swelling of the lower extremities. Patient denies dizziness or palpitations. Patient states she had an IN in the past, possibly around 3 to 4 years ago. She states she was seen at a hospital in [facility] and underwent angiogram at that time. Patient states no stents were needed, said her heart looked good. Patient does have history of hypertension and hypothyroidism. Patient states she is not taking any medications for some time. Patient does states she smokes half to 1 pack/day of cigarettes. States occasional alcohol consumption. Patient states there is family history of coronary artery disease in her family. States mother has known congestive heart failure. Initial work-up was performed in the ED. EKG reveals sinus rhythm with non [place] ST wave changes. environmental monitoring technician reveals sinus bradycardia to sinus rhythm with heart rate of 52 to 62 bpm. Blood pressure is stable. Serial troponins have been performed. Troponins x2 have been negative. Discussed plan of care with PCP. Patient will be set up for [facility] this a.m. due to typical chest pain. Patient states she is unable to walk on the treadmill due to legs cramping. Will obtain echocardiogram to assess LV function and valve status. Pending on the results of the stress test and echocardiogram, medication and treatment therapies may be recommended. Thank you for allowing cardiology to participate in the care of this patient. [facility] History I have reviewed the patient's past medical history: Yes Medical History: Reports:: Hyperlipidemia, Hypertension Denies:: Diabetes Mellitus Type 1, Diabetes Mellitus Type 2 *Have you ever received a pneumonia vaccine?: No *Have you received a flu vaccine this season?: No - *Social History Last grade of school completed: High school graduate Smoking Status: Current every day smoker Tobacco Type: cigarettes # Packs/Day (cigarettes): 1 Alcohol Intake: never Alcohol Intake Frequency:: 0-2 drinks per day *Occupational Status:: employed Housing: apartment *Travel in the last 8 weeks: None Family Hx:: Non-contributory Meds Home Medications Medication Instructions Recorded Confirmed Type No Known Home Medications 06/20/21 06/20/21 History Allergies Allergy/AdvReac Type Severity Reaction Status Date / Time calamine [CALAMINE] Allergy Intermediate I-HIVES Verified 01/22/21 13:16 BEE STINGS Allergy Unknown Uncoded 10/19/17 15:21 Exam Vital signs and Labs for Last 24 Hours: Temp Pulse Resp BP Pulse Ox 97.7 F 47 L 18 125/59 L 100 06/20/21 07:32 06/20/21 07:32 06/20/21 07:32 06/20/21 07:32 06/20/21 07:32 Laboratory Results - last 24 hr 06/20/21 02:00: WBC 8.3, RBC 4.36, Hgb 13.4, Hct 38.8, MCV 89.1, MCH 30.9, MCHC 34.6, RDW 13.3, Plt Count 309, MPV 7.7, Neut % (Auto) 56.1, Lymph % (Auto) 38.2, Bowie % (Auto) 4.5, Eos % (Auto) 0.5, Baso % (Auto) 0.6, Neut # (Auto) 4.7, Lymph # (Auto) 3.2, Bowie # (Auto) 0.4, Eos # (Auto) 0.0, Baso # (Auto) 0.1 06/20/21 02:00: Sodium 140, Potassium 3.8, Chloride 105, Carbon Dioxide 26, Anion Gap 12.8, BUN 14, Creatinine 0.80, Estimated Creat Clear 110,
[2021-06-20 08:18] LABS: Troponin I < 0.01 ng/ml (0.00-0.034)
--- NOTE | 2021-06-20 14:48 | PC.NURSE ---
Addendum entered by Latonya Pendleton RN 06/20/21 15:47: Prior to pt leaving pt was requesting food, received order from Dr. Monge's office for pt to have cardiac diet. Try brought up by dietary, pt stated that she did not want to eat the food brought, she just wanted to be discharged. Original Note: Pt adamant about leaving, spoke to pt and told her that we were still waiting on DC order. Pt uncooperative, sig other @ bedside. IV taken out, wrapped in koban. Pt refused to sign AMA paper, witnessed w/ Emilio Eli. PT left floor @ 1446. E [place] made aware.
--- NOTE | 2021-06-20 16:35 | HMH.DCSUM ---
General - General Admission date:: 06/20/21 Discharge date: 06/20/21 Hospital Course Hospital Course: Laboratory Tests 06/20/21 06/20/21 06/20/21 02:00 02:00 02:00 WBC 8.3 RBC 4.36 Hgb 13.4 Hct 38.8 MCV 89.1 MCH 30.9 MCHC 34.6 RDW 13.3 Plt Count 309 MPV 7.7 Neut % (Auto) 56.1 Lymph % (Auto) 38.2 Dundy % (Auto) 4.5 Eos % (Auto) 0.5 Baso % (Auto) 0.6 Neut # (Auto) 4.7 Lymph # (Auto) 3.2 Dundy # (Auto) 0.4 Eos # (Auto) 0.0 Baso # (Auto) 0.1 ESR 21 H Sodium 140 Potassium 3.8 Chloride 105 Carbon Dioxide 26 Anion Gap 12.8 BUN 14 Creatinine 0.80 Estimated Creat Clear 110 Estimated GFR 81 Est GFR ( Amer) 98 Glucose 97 Calcium 9.7 Magnesium 2.0 Total Bilirubin Direct Bilirubin Conjugated Bilirubin Indirect Bilirubin Unconjugated Bilirubin AST ALT Alkaline Phosphatase Troponin I < 0.01 C-Reactive Protein 0.4 Total Protein Albumin Triglycerides Cholesterol LDL Cholesterol Direct VLDL Cholesterol HDL Cholesterol Cholesterol/HDL Ratio Procalcitonin TSH Thyroxine (T4) Urine Color Urine Appearance Urine pH Ur Specific Bendena Urine Protein Urine Glucose (UA) Urine Ketones Urine Blood Urine Nitrate Urine Bilirubin Urine Urobilinogen Ur Leukocyte Esterase Urine WBC Ur Squamous Epith Cells Urine Bacteria Urine Mucus SARS-CoV-2 (PCR) Influenza A Untype (PCR) Influenza Type B (PCR) 06/20/21 06/20/21 06/20/21 02:00 02:00 02:00 WBC RBC Hgb Hct MCV MCH MCHC RDW Plt Count MPV Neut % (Auto) Lymph % (Auto) Dundy % (Auto) Eos % (Auto) Baso % (Auto) Neut # (Auto) Lymph # (Auto) Dundy # (Auto) Eos # (Auto) Baso # (Auto) ESR Sodium Potassium Chloride Carbon Dioxide Anion Gap BUN Creatinine Estimated Creat Clear Estimated GFR Est GFR ( Amer) Glucose Calcium Magnesium Total Bilirubin 0.7 Direct Bilirubin 0.5 H Conjugated Bilirubin 0.0 Indirect Bilirubin 0.2 Unconjugated Bilirubin 0.1 AST 24 ALT 18 Alkaline Phosphatase 60 Troponin I C-Reactive Protein Total Protein 7.5 Albumin 4.3 Triglycerides Cholesterol LDL Cholesterol Direct VLDL Cholesterol HDL Cholesterol Cholesterol/HDL Ratio Procalcitonin 0.075 TSH 0.76 Thyroxine (T4) 6.6 Urine Color Urine Appearance Urine pH Ur Specific Bend[place] Urine Protein Urine Glucose (UA) Urine Ketones Urine Blood Urine Nitrate Urine Bilirubin Urine Urobilinogen Ur Leukocyte Esterase Urine WBC Ur Squamous Epith Cells Urine Bacteria Urine Mucus SARS-CoV-2 (PCR) Influenza A Untype (PCR) Influenza Type B (PCR) 06/20/21 06/20/21 06/20/21 02:30 03:45 05:17 WBC RBC Hgb Hct MCV MCH MCHC RDW Plt Count MPV Neut % (Auto) Lymph % (Auto) Dundy % (Auto) Eos % (Auto) Baso % (Auto) Neut # (Auto) Lymph # (Auto) Dundy # (Auto) Eos # (Auto) Baso # (Auto) ESR Sodium Potassium Chloride Carbon Dioxide Anion Gap BUN Creatinine Estimated Creat Clear Estimated GFR Est GFR ( Amer) Glucose Calcium Magnesium Total Bilirubin Direct Bilirubin Conjugated Bilirubin Indirect Bilirubin Unconjugated Bilirubin AST ALT Alkaline Phosphatase Troponin I < 0.01 C-Reactive Protein Total Protein Albumin Triglycerides Cholesterol LDL Cholesterol Direct VLDL Cholesterol HDL Cholesterol Cholesterol/HDL Ratio Procalcitonin TSH Thyroxine (T4) Urine Color Yellow Urine Appearance Clear Urine pH 7.0 Ur Spec
--- NOTE | 2021-06-20 18:00 | PC.NURSE ---
Per Yancy Zambrano request pt was notified that she needed to go to see Dr Kumar 06/23 at 0900 and that she needs a heart cath. pt also has 2 RX ready for order picker/assembler at [facility].
--- NOTE | 2021-07-01 12:27 | HMH.HP ---
*Admission Date: 06/20/21 *Chief complaint: chest pain *History of present illness: 35-year-old female admitted to [facility] with midsternal chest pain. Patient states her chest pain radiates down bilateral arms to the middle of the chest. Patient describes pain as stabbing pressure feeling in the chest. Patient states intermittent dyspnea associated with chest pain. Patient states she has been upset and has had anxiety for the past few days due to current home situation. Patient states chest pain is likely due to to her anxiety and stress. Patient denies chest pain, tightness or pressure at this time. Patient did say nitroglycerin relieved her chest pain earlier. Patient denies shortness of breath. No swelling of the lower extremities. Patient denies dizziness or palpitations. Patient states she had an SD in the past, possibly around 3 to 4 years ago. She states she was seen at a hospital in [facility] and underwent angiogram at that time. Patient states no stents were needed, said her heart looked good. Patient does have history of hypertension and hypothyroidism. Patient states she is not taking any medications for some time. Patient does states she smokes half to 1 pack/day of cigarettes. States occasional alcohol consumption. Patient states there is family history of coronary artery disease in her family. States mother has known congestive heart failure. Initial work-up was performed in the ED. EKG reveals sinus rhythm with non [place] ST wave changes. library monitor reveals sinus bradycardia to sinus rhythm with heart rate of 52 to 62 bpm. Blood pressure is stable. Serial troponins have been performed. Troponins x2 have been negative. Discussed plan of care with PCP. Patient will be set up for [employer] this a.m. due to typical chest pain. Patient states she is unable to walk on the treadmill due to legs cramping. Will obtain echocardiogram to assess LV function and valve status. Pending on the results of the stress test and echocardiogram, medication and treatment therapies may be recommended. Thank you for allowing cardiology to participate in the care of this patient.- per cardiology [facility] History I have reviewed the patient's past medical history: Yes Medical History: Reports:: Hyperlipidemia, Hypertension Denies:: Diabetes Mellitus Type 1, Diabetes Mellitus Type 2 *Have you ever received a pneumonia vaccine?: No *Have you received a flu vaccine this season?: No Other Surgeries: Yes: Hernia Repair, Hysterectomy-Partial - *Social History Last grade of school completed: High school graduate Smoking Status: Current every day smoker Tobacco Type: cigarettes # Packs/Day (cigarettes): 1 Alcohol Intake: never Alcohol Intake Frequency:: 0-2 drinks per day *Occupational Status:: employed Housing: apartment *Travel in the last 8 weeks: None Family Hx:: Non-contributory Review of Systems - Review of Systems Review of systems:: pertinent systems reviewed and negative unless documented below - Constitutional Reports fatigue, Denies body ache(s), Denies lack of energy - Eyes Denies blurry vision - ENT Denies bleeding gums - *Cardiovascular Reports chest pain, Reports chest pain at rest, Reports chest pain with activity, Reports generalized swelling - *Respiratory Denies change in phlegm color, Denies chest congestion - *Gastrointestinal Denies abdominal pain - *Genitourinary Denies urinary incontinence - *Musculoskeletal Denies abnormal walking - Integumentary/Breasts Denies itching - *Neurologic Denies abnormal walking, Denies headache(s), Denies seizure-like activity - Psychiatric Denies lack of enjoyment - Endocrine Denies increased thirst - Hematologic/Lymphatic Denies easy bleeding - Allergic/Immunologic Denies seasonal runny nose Meds Home Medications Medication Instructions Recorded Confirmed Type Aspirin [Aspirin 81mg EC Tab*
== END 2021-06-20 14:46 | disposition left against medical advice (07) ==
LOC: ER 04:08 → 2ND 05:20
PROVIDERS: Admitting Provider Emergency Medicine; Emergency Provider Emergency Medicine; PCP Nurse Practitioner Family; Visit Provider Emergency Medicine
DX: R07.9 Chest pain, unspecified (principal); I10 Essential (primary) hypertension; E03.9 Hypothyroidism, unspecified; F17.210 Nicotine dependence, cigarettes, uncomplicated; Z20.822 Contact with and (suspected) exposure to COVID-19
CPT/HCPCS: 36415; 71045; 71275; 76705; 78452; 80048; 80061; 80076; 81001; 83735; 84145; 84436; 84443; 84484; 85025; 85651; 86140; 93005; 93017; 93306; 96365; 96375; 99284; A9502; G0378; J2785; Q9967; U0003

== ENCOUNTER → 2021-07-01 14:16 | Outpatient (CLI) | payer MEDICAID, SELFPAY ==
[2021-07-01 14:47] LABS: Basophils % 0.6 % (0.1-2.0); Eosinophils % 0.4 % (0.1-12.0); Hemoglobin 13.3 g/dL (12.2-16.2); Lymphocytes # 2.5 K/mm3 (0.7-4.5); Lymphocytes % 34.2 % (10-50); Mean Corpuscular HGB Conc 33.1 g/dL (31.8-35.4); Mean Corpuscular Volume 96.4 fl (81-99); Mean Platelet Volume 8.1 fl (7.4-10.4); Monocytes # 0.3 K/mm3 (0.1-1.0); Monocytes % 4.6 % (1.7-9.3); Neutrophils # 4.4 K/mm3 (1.8-7.8); Neutrophils % 60.2 % (37.0-80.0); Platelet Count 352 K/mm3 (142-424); Red Blood Count 4.15 M/mm3 (4.20-5.40); Red Cell Distribution Width 13.2 % (11.5-17.5); White Blood Count 7.3 K/mm3 (4.8-10.8)
[2021-07-01 15:42] LABS: Anion Gap 10.3 mEq/L (5-15); Blood Urea Nitrogen 13 mg/dl (7-17); Calcium 9.1 mg/dl (8.4-10.2); Carbon Dioxide 27 mmol/L (22.0-30.0); Chloride 105 mmol/L (98-107); Estimated Glomerular Filt Rate 94 ml/min (>60); GFR (African American) 114 ML/MIN (>60); Glucose 87 mg/dl (74-100); Potassium 4.3 mmoL/L (3.5-5.1); Sodium 138 mmol/L (136-145)
== END ==
PROVIDERS: Nurse Practitioner Family; Visit Provider Internal Medicine
DX: Z01.812 Encounter for preprocedural laboratory examination (principal); Z11.52 Encounter for screening for COVID-19; I20.8 Other forms of angina pectoris; I25.118 Atherosclerotic heart disease of native coronary artery with other forms of angina pectoris; I10 Essential (primary) hypertension; I63.9 Cerebral infarction, unspecified; R06.00 Dyspnea, unspecified; R94.39 Abnormal result of other cardiovascular function study; Z72.0 Tobacco use; Z82.49 Family history of ischemic heart disease and other diseases of the circulatory system
CPT/HCPCS: 36415; 80048; 85025; U0003

== ENCOUNTER 2021-07-02 08:43 | Day surgery (SDC) | payer MEDICAID, SELFPAY ==
[2021-07-02] VITALS (12 sets, daily range): BP systolic 107–142; BP diastolic 62–83; PULSE 50–66; RESP 18; O2SAT 99–100; BMI 17.3
--- NOTE | 2021-07-02 07:26 | IR_ITS ---
APPROVED REPORT Patient Location: Outpatient Educational Technician: MARIA ANTONIA Goodman RT (R) PROCEDURES Left heart catheterization Left ventriculogram Selective coronary angiogram INDICATION Abnormal Myoview Informed consent was obtained prior to the procedure. COMPLICATIONS None Estimated Blood Loss: Less than 10 mls TECHNIQUE One percent lidocaine used to anesthetize the right anterior aspect of the wrist. The right radial artery was accessed via the Seldinger technique. A 6 American sheath was placed in the right radial artery. 2.5 mg of verapamil, 800 mcg of nitroglycerin, 1mg Lidocaine and 5000 U Heparin were given through the arterial sheath. The trap catheter was also used to perform left heart catheterization, left ventriculogram and selective coronary angiogram. At the end of the procedure the sheath was removed good hemostasis was achieved using Traclet band, patient was transferred to the postop holding area in stable condition. ANGIOGRAPHIC RESULTS The left main artery Normal The left anterior descending artery Normal The circumflex artery Normal The right coronary artery Dominant normal The LARA ventriculogram reveals Normal 65% The left ventricular end-diastolic pressure 15 mmHg IMPRESSION Normal coronary arteries Normal ejection fraction Mildly elevated LVEDP PLAN 1. Evaluation of noncardiac symptoms Electronically signed by : Eddie Kumar MD 07/02/2021 10:17:15
== END 2021-07-02 14:21 | disposition home or self-care (01) ==
LOC: CATHLAB 08:44
PROVIDERS: PCP Nurse Practitioner Family; Visit Provider Internal Medicine
DX: I25.118 Atherosclerotic heart disease of native coronary artery with other forms of angina pectoris (principal); I10 Essential (primary) hypertension; R06.00 Dyspnea, unspecified; R94.39 Abnormal result of other cardiovascular function study; Z82.49 Family history of ischemic heart disease and other diseases of the circulatory system; F17.210 Nicotine dependence, cigarettes, uncomplicated
CPT/HCPCS: 93458; 99152; C1725; C1769; J1644; Q9967